=== PATIENT | female | born 1960 | race Caucasian/White ===

== ENCOUNTER 2017-06-07 12:56 | Emergency (ER) | payer OTHER ==
[~2017-06-07] VITALS: Ht 165.1 cm; Wt 96.8 kg
[~2017-06-07 12:56] MED LIST: CITA40TA PO; GABA300C PO; HYDR1TAB94 PO; IBUP-1152 PO; LISI20TA PO; LYR75 PO; METH500T7 PO; OMEP20TA86 PO; PRE625 PO; ROPI1TAB3 PO; TEMA15CA PO; [UNRECOGNIZED DRUG - CODE] PO
[2017-06-07 13:13] VITALS: BP 132/93; PULSE 93; RESP 18; O2SAT 99
--- NOTE | 2017-06-07 14:34 | ED.REPORT ---
HPI-Back Pain 40 and Over Date of Service Jun 07, 2017 ED Provider: Ijeoma Alexandra History of Present Illness: had a toradol injection yesterday. She states it helped with the pain but was told she could not have another toradol injection today. denies a pain contract, was getting pain meds from the [facility]. prescription ended on 05/25/2017. Carrillo is primary care, Was told a different visit is needed to start pain management. seeing 07/04/2017 Dr. Vizcaino. back pain for years, has arthritis. sent here for MRI. per her report nausea with stoping opiates, denies bowel or bladder issues. reports last episode of inability to walk was a month ago, lasting 8 hours. Reports that happens but she is always able to walk again. Denies recent fall or injury Nursing Notes Stated Complaint: BACK PAIN SENT BY Chief Complaint: Back Pain or Injury Nursing Notes Reviewed: Yes Allergies: Uncoded Allergies: SULFA (Allergy, Severe, 07/12/09) AMITRYPTILENE (Allergy, Intermediate, hallucinations, 07/18/16) ENVIRONMENTAL (Allergy, Unknown, HAYFEVER, 02/07/05) Scheduled Citalopram-Expunged Drug, Do Not Renew! (Citalopram-Expunged Drug, Do Not Renew! ) 40 Mg Tablet 40 MG PO DAILY Estrogens Conj-Expunged Drug, Do Not Renew! (Premarin-Expunged Drug, Do Not Renew!) 0.625 Mg Tab 0.625 MG PO AM Gabapentin-Expunged Drug, Do Not Renew! (Neurontin-Expunged Drug, Do Not Renew! ) 300 Mg Capsule 1,200 MG PO BID Hydrocod/APAP-Expunged, Do Not Renew! (Hydrocod/APAP 10/325-Expunged, Do Not Renew!) 1 Tab Tablet 1 TAB PO Q6 IBUPROFEN-Expunged Drug, Do Not Renew! (IBUPROFEN-Expunged Drug, Do Not Renew!) 800 Mg Tablet 800 MG PO Q3-4HP Lisinopril-Expunged Drug, Do Not Renew! (Lisinopril-Expunged Drug, Do Not Renew! ) 20 Mg Tablet 20 MG PO AM Loratadine-Expunged Drug,Do Not Renew! (Allergy-Expunged Drug, Do Not Renew!) 10 Mg Tablet 10 MG PO DAILY Methocarbamol-Expunged Drug, Do Not Renew! (Methocarbamol-Expunged Drug, Do Not Renew!) 500 Mg Tablet 500 MG PO Q6 Omeprazole-Expunged Drug, Do Not Renew! (Omeprazole-Expunged Drug, Do Not Renew! ) 20 Mg Tablet.dr 20 MG PO DAILY Pregabalin-Expunged Drug, Do Not Renew! (Lyrica-Expunged Drug, Do Not Renew!) 75 Mg Capsule 75 MG PO BID Ropinirole Hcl-Expunged Drug, Do Not Renew! (Ropinirole Hcl-Expunged Drug, Do Not Renew!) 1 Mg Tablet 1 MG PO Q8 Temazepam-Expunged Drug, Do Not Renew! (Temazepam-Expunged Drug, Do Not Renew!) 15 Mg Capsule 15 MG PO HS General Time Seen by MD: 14:05 Chief Complaint Back pain Hx Obtained From: Patient Sudden in Onset?: No Past Medical History Past Medical History Hypertension Degenerative disc disease COPD Carpal tunnel Denies: Asthma, Diabetes mellitus Past Surgical History Cholecystectomy Sinus Carpal tunnel bilat Smoking History Current Every Day Smoker (1/2 a pack for 35 years) Social History Alcohol Use: "Social" Drug Use: Denies drug use Occupation lives with grandsons raising them 7 and 12 , no work or school 06/07/2017 Ambulatory Status Independent Review of Systems Basic Review of Systems Eyes: Vision NL, No discharge Skin: No bruising, No rash, No itch Psychiatric: Normal thought content Physical Exam Initial Vital Signs Vital Signs (First) Date Time Temp Pulse Resp B/P Pulse Ox O2 Delivery O2 Flow Rate FiO2 06/07/17 13:13 36.5 93 18 132/93 99 Room Air Initial VS: Reviewed, Vital signs normal Head / Eyes: Atraumatic, Normocephalic, PERRL ENT: Mucous membranes moist, Conjunctiva normal, No scleral icterus Neck: Supple, Non-tender, Full range of motion Lymphatic: No lymphadenopathy Extremities: Vascular intact, Neuro intact, No swelling, No tenderness Skin: Warm, Dry, No cyanosis Psychiatric: Mood/affect normal, Behavior normal, Normal thought content General/Constitutional: Awake, Alert, No acute distress, Well appearing, Well developed, Well hydrated, Well nourished, Cooperative, Not toxic appearing Respiratory / Chest: Atraumatic, Breath sounds NL, Breath sounds = bilat, No respiratory distress, No rales, No rhonchi, No wheezing Cardiovascular: Heart rate NL, Regular rhythm, Heart sounds NL, No gallop Abdomen: Atraumatic, Soft, Non-tender Patient with pain to the littlest touch, patient reporting pain across entire back, no point tenderness, able to walk, heel, toe and heel to toe walk without difficulty. No sign of muscle atrophy or weakness. Patient reporting equal sensation on labia and perineal area. Sensation is intact in perineal area. Neurologic: Oriented X3, Speech NL, No motor deficits, No sensory deficits, Reflexes equal bilat, Cerebellar NL, Memory NL, Gait NL Lower Extremity / Pelvis / MS: Atraumatic, Inspection NL, Full range of motion , No swelling, Non-tender, No erythema Interpretation & Diagnostics Lab Results Interpretation Lab Results Interpretation: urine is negative for any infection or blood. U tox is negative. Re-Eval/Medical Decision Med Decision/Clinical Course 56 year old female presents to the Er for pain control. Whgloria asked what I could do to help, she requests the pain to go away in her back. Patient has recently been stopped by her former primary care provider from ongoing opiate 112 vicodin every 28 days from Abraham Syed at the [facility]. Patient reports she was dismissed for non payment of a bill. Exam is reassuring. Evangelina was happy to learn that ketorolac is the pill version of toradol. Discussed with Dr. Huntley, no acute need for urgent MRI. Dr. Vizcaino can order from primary care. Patient is happy with plan Discharge & Departure Impression: Primary Impression: Low back pain Disposition: Home Patient Instructions: Low Back Strain (ED), Sciatica (ED) Additional Instructions: The exam is reassuring. Your urine does not show any sign of blood or infection. It is being sent to the lab. You have equal sensation in your perineal area, no sign of any saddle parathesia. You received a dose of decadron in the ER. Please continue with the oral toradol pills. Please work with Dr. Vizcaino to order an MRI if he feels you need one. At this time I am not finding any emergent condition. I am sorry you are having back pain. Continue with movement. Referrals: Pete Vizcaino DO EDSupervising Provider for APC: Albin Huntley MD copies to: Pete Vizcaino Sue ARNP Jun 07, 2017 14:34
[2017-06-07] MEDS ORDERED: Dexamethasone 20 mg/2 mL Oral Solution PO ONE (14:45)
[2017-06-07 15:40] VITALS: BP 127/90; PULSE 87; RESP 16; O2SAT 99
== END 2017-06-07 15:42 | disposition home or self-care (01) ==
LOC: SED 12:56
DX: M54.5 Low back pain (principal); I10 Essential (primary) hypertension; J44.9 Chronic obstructive pulmonary disease, unspecified; F17.200 Nicotine dependence, unspecified, uncomplicated